=== PATIENT | male | born 1950 | race African-American/Black ===

== ENCOUNTER 2016-12-21 12:38 | Outpatient (CLI) | payer MEDICARE, BC ==
[2016-12-21 13:09] LABS: ALT (SGPT) Less than 6 U/L (0-55); AST (SGOT) 11 U/L (5-34); Albumin 3.6 g/dL (3.4-4.8); Alkaline Phosphatase 56 U/L (40-150); Anion Gap 18 mmol/L (10-20); BUN (Urea Nitrogen) 21 mg/dL (8.4-25.7); Calc. Creatinine Clearance 0 mL/min (70-130); Carbon Dioxide 29 mmol/L (23-31); Cardiac Risk 2.1 (Less than 4.5); Chloride 95 mmol/L (98-107); Cholesterol 90 mg/dL (< 200 Desired); Estimated GFR-MDRD 12; Globulin 3.4 g/dL (2.4-3.5); Glucose 108 mg/dL (80-115); HDL Cholesterol 43 mg/dL (>60 Neg Risk); LDL Cholesterol, Calculated 39 mg/dL; Sodium 138 mmol/L (136-145); Triglycerides 39 mg/dL (Less than 150)
[2016-12-21 13:47] LABS: #Basophils 0.1 thou/uL (0.0-0.2); #Eosinphils 0.1 thou/uL (0.0-0.7); #Lymphocytes 0.8 thou/uL (1.20-3.40); #Monocytes 0.2 thou/uL (0.11-0.59); #Neutrophils 1.8 thou/uL (1.40-6.50); %Basophils 1.7 % (0.0-1.0); %Lymphocytes 25.8 % (21.0-51.0); %Neutrophils 60.6 % (42.0-75.0); Anisocytosis SLIGHT = 6-15 cells (100X) (0-5/hpf); Hemoglobin 12.4 g/dL (14.0-18.0); MDiff Complete? YES; Mean Corpuscular HGB CONC 31.4 g/dL (32.0-36.0); Mean Corpuscular Hemoglobin 31.3 pg (27.0-31.0); Mean Corpuscular Volume 99.5 fl (80.0-94.0); PLT Morphology Comment Appears Adequate; Platelet Count 142 thou/uL (130-400); RBC Distribution Width 14.1 % (11.5-14.5); Red Blood Cell (RBC) Count 3.97 mill/uL (4.70-6.10)
[2016-12-21 14:04] LABS: Hemoglobin A1c 4.5 % (4.0-6.0)
== END 2016-12-21 12:39 | disposition home or self-care (01) ==
LOC: NAVSJIPCSP 12:38
PROVIDERS: ATTEND Internal Medicine
DX: E78.5 Hyperlipidemia, unspecified (principal); I11.9 Hypertensive heart disease without heart failure; N18.5 Chronic kidney disease, stage 5; I73.9 Peripheral vascular disease, unspecified
CPT/HCPCS: 36415; 80053; 80061; 83036; 85025; G0103